=== PATIENT | female | born 1975 | race Caucasian/White ===

== ENCOUNTER → 2023-01-30 | Outpatient (CLI) | payer BC | LOC: LAB SHORT 16:33 → LAB 16:33 | DX: R82.90 Unspecified abnormal findings in urine (principal) | CPT/HCPCS: 87086 ==

== ENCOUNTER 2023-03-11 14:15 | Emergency (ER) | payer BC ==
[~2023-03-11] VITALS: Ht 177.8 cm; Wt 104.3 kg
[2023-03-11 14:21] VITALS: BP 124/79
== END 2023-03-11 15:17 | disposition home or self-care (01) ==
LOC: ER 14:15
DX: S61.431A Puncture wound without foreign body of right hand, initial encounter (principal); W29.2XXA Contact with other powered household machinery, initial encounter; Z88.0 Allergy status to penicillin; Z88.8 Allergy status to other drugs, medicaments and biological substances
CPT/HCPCS: 73130; 90471; 90714; 99283-25